=== PATIENT | male | born 1970 | race Caucasian/White ===

== ENCOUNTER 2022-02-04 10:11 | Emergency (ER) | payer MEDICAID, OTHER ==
[~2022-02-04] VITALS: Ht 177.8 cm; Wt 118.8 kg
[2022-02-04 11:42] LABS: BASOPHILS # (AUTO) 0.1 X10'3 (0-0.2); BASOPHILS % (AUTO) 0.8 % (0-1); EOSINOPHILS % (AUTO) 0.4 % (0-6); HEMATOCRIT 45.6 % (42.0-52.0); HEMOGLOBIN 15.7 g/dl (14.0-17.9); LYMPHOCYTES # (AUTO) 1.2 X10'3 (1.1-4.8); LYMPHOCYTES % (AUTO) 13.5 % (21-51); MEAN CORPUSCULAR HEMOGLOBIN 32.3 PG (27.0-31.0); MEAN CORPUSCULAR HGB CONC 34.5 g/dL (33.0-36.5); MEAN CORPUSCULAR VOLUME 93.8 FL (78-98); MEAN PLATELET VOLUME 9.1 FL (7.4-10.4); MONOCYTES # (AUTO) 1.1 X10'3 (0-0.9); NEUTROPHILS # (AUTO) 6.3 X10'3 (1.8-7.7); NEUTROPHILS % (AUTO) 72.3 % (42-75); PLATELET COUNT 162 X10'3 (140-440); RED BLOOD COUNT 4.87 X10'6 (4.70-6.10); RED CELL DISTRIBUTION WIDTH 12.8 % (11.5-14.5); WHITE BLOOD COUNT 8.7 X10'3 (4.5-11.0)
[2022-02-04 11:55] LABS: ALANINE AMINOTRANSFERASE 48 U/L (12-78); ALBUMIN 3.4 G/DL (3.4-5.0); ALBUMIN/GLOBULIN RATIO 0.7 (1.1-1.5); ALKALINE PHOSPHATASE 114 IU/L (46-116); ANION GAP 8 (8-16); ASPARTATE AMINO TRANSFERASE 43 U/L (10-37); BILIRUBIN,TOTAL 0.9 MG/DL (0.1-1.0); BLOOD UREA NITROGEN 5 MG/DL (7-18); BUN/CREATININE RATIO 5.4 (5.4-32.0); CALCIUM 9.2 MG/DL (8.5-10.1); CHLORIDE 102 MMOL/L (99-107); CREATININE 0.92 MG/DL (0.60-1.10); ETHANOL < 0.010 GM/DL (0.0-0.010); GLUCOSE 144 MG/DL (70-104); POTASSIUM 4.2 MMOL/L (3.5-5.1); SODIUM 138 MMOL/L (135-145); TOTAL CARBON DIOXIDE 27.9 MMOL/L (24-32); TOTAL PROTEIN 8.5 G/DL (6.4-8.2); eGFR 86 ML/MIN
[2022-02-04 12:59] VITALS: BP 132/78
== END 2022-02-04 14:33 | disposition home or self-care (01) ==
LOC: ER 10:12
DX: Z13.89 Encounter for screening for other disorder (principal); R42 Dizziness and giddiness
CPT/HCPCS: 36415; 70450; 71045; 80053; 80320; 82140; 85025; 93005; 99285

== ENCOUNTER 2025-07-24 09:04 | Outpatient (CLI) | payer MEDICAID ==
--- NOTE | 2025-07-24 10:20 | RADIOLOGY REPORT ---
INDICATION: ALCOHOL USE, UNSPECIFIED, IN REMISSION TECHNIQUE: Multiple real-time sonographic images were obtained of the right upper quadrant. COMPARISON: None FINDINGS: The liver demonstrates coarsened echotexture without focal mass lesions. The liver measures 15 cm. There is no intrahepatic or extrahepatic ductal dilatation. The common duct measures 5 mm. The gallbladder is without evidence of stone or sludge. The gallbladder wall measures 1 mm and is within normal limits. The right kidney measures 11.2 cm. The right kidney is normal in contour, size, and shape. The echogenicity is normal. There is no hydronephrosis. The pancreas is not well visualized due to overlying bowel gas. IMPRESSION: Coarsened liver echotexture suggestive of cirrhosis.
== END 2025-07-24 23:59 | disposition home or self-care (01) ==
LOC: RAD 09:04
PROVIDERS: ATTEND Student in an Organized Health Care Education/Training Program
DX: F10.91 Alcohol use, unspecified, in remission (principal)
CPT/HCPCS: 76700

== ENCOUNTER 2025-09-13 15:34 | Outpatient (CLI) | payer MEDICARE, MEDICAID ==
[2025-09-13 16:21] VITALS: PULSE 54; RESP 16; O2SAT 97
--- NOTE | 2025-09-14 15:14 | PROCEDURE NOTE - Respiratory ---
Procedure Note-Respiratory Providers to CC Copies To 1: GEOFFREY GERBER MD Procedure Name: This is a spirometry study dated September 13, 2025. Spirometry measurements: The forced vital capacity is normal at 4.5 L. The FEV1 is normal at 3.69 L. the FEV1 ratio is normal. The flow rate measurements are normal. Bronchodilator was not administered as part of the study. Conclusion: Normal spirometry study. There are no previous studies for co mparison. MODE BROWN MD Sep 14, 2025 15:14
== END 2025-09-13 23:59 | disposition home or self-care (01) ==
LOC: RT 15:34
PROVIDERS: ATTEND Student in an Organized Health Care Education/Training Program
DX: R06.02 Shortness of breath (principal)
CPT/HCPCS: 94010; 94760